=== PATIENT | male | born 1955 | race Hispanic/Latino ===

== ENCOUNTER → 2018-11-20 | Outpatient (CLI) | payer OTHER ==
--- NOTE | 2018-11-20 13:43 | Diagnostic Imaging Report ---
EXAM: Right upper quadrant abdominal ultrasound INDICATION: Elevated LFTs. COMPARISON: None. TECHNIQUE: Transverse and longitudinal images of the right upper quadrant abdomen were obtained FINDINGS: Liver: Size: 15.3 cm in the right midclavicular line, normal Appearance: Increased echogenicity, smooth contour Mass: No focal masses Gallbladder: No evidence of distention, pericholecystic fluid, wall thickening, stone, or reported sonographic Ledbetter's sign. Mild gallbladder sludge is noted. Gallbladder wall measures 0.2 cm. Bile Ducts: Intrahepatic Ducts: No dilatation Extrahepatic Ducts: Common bile duct measures 0.4 cm, no dilatation Pancreas: Partially visualized pancreas is unremarkable. Kidney: The right kidney measures 12.1 cm without evidence of hydronephrosis or stone. Vessels: Aorta: Visualized portions are normal Inferior Vena Cava: Visualized portions are normal Main Portal Vein: Measures 1.2 cm, normal size with hepatopetal flow. Free Fluid: No evidence of ascites. IMPRESSION: Mild gallbladder sludge without sonographic evidence of cholecystitis or cholelithiasis. Hepatic steatosis. Signed by: Dr. Sasha Mckeon MD on 11/20/2018 1:39 PM
== END ==
LOC: US 11:37
PROVIDERS: ATTEND Internal Medicine Gastroenterology
DX: R74.8 Abnormal levels of other serum enzymes (principal)
CPT/HCPCS: 76705

== ENCOUNTER → 2018-12-22 | Day surgery (SDC) | payer OTHER ==
[~2018-12-22] MED LIST: FENTANYL CITRATE/PF 100MCG/2 ML INJ ONE; GLIMEPIRIDE2 MG PO; LOSARTAN POTASS25 MG; LOVASTATIN40 MG; MIDAZOLAM HCL 2 MG/2 ML VIAL ONE; MULTIVITAMINS1 EAC7; OMEPRAZOLE40 MG; PROPOFOL IV EMULSION 10 MG/ML 50 ML VIAL ONE; ZOLPIDEM TARTRA10 MG PO
--- OUTSIDE RECORDS SUMMARY | 2018-12-22 15:07 | XMS REPORT ---
Author [facility] Address Unknown Phone Unavailable Care Team Providers Care Yardmaster Name Role Phone CONRADO DAVIS Unavailable Unavailable Problems This patient has no known problems. Allergies, Adverse Reactions, Alerts This patient has no known allergies or adverse reactions. Medications This patient has no known medications. Results Test Description Test Time Test Comments Text Results Atomic Results Result Comments LIVER 2018-11-20 13:35:00 [place] [address] Patient Name: JUDI SINGH MR #: [id number] : 1955 Age/Sex: 63/M Req #: [id number] Adm Physician: Ordered by: CONRADO DAVIS MD Report #: [id number] Location: Room/Bed: Procedure: [id number] US/US LIVER Exam Date: 11/20/18 Exam Time: 1216 REPORT STATUS: Signed EXAM: Right upper quadrant abdominal ultrasound INDICATION: El evated LFTs. COMPARISON: None. TECHNIQUE: Transverse and longitudinal images of the right upper quadrant abdomen were obtained FINDINGS: Liver: Size: 15.3 cm in the right midclavicular line, normal Appearance: Increased echogenicity, smooth contour Mass: No focal masses Gallbladder: No evidence of distention, pericholecystic fluid, wall thickening, stone, or reported sonographic Ledbetter's sign. Mild gallbladder sludge is noted. Gallbladder wall measures 0.2 cm. Bile Ducts: Intrahepatic Ducts: No dilatation Extrahepatic Ducts: Common bile duct measures 0.4 cm, no dilatation Pancreas: Partially visualized pancreas is unremarkable. Kidney: The right kidney measures 12.1 cm without evidence of hydronephrosis or stone. Vessels: Aorta: Visualized portions are normal Inferior Vena Cava: Visualized portions are normal Main Portal Vein: Measures 1.2 cm, normal size with hepatopetal flow. Free Fluid: No evidence of ascites. IMPRESSION: Mild gallbladder sludge without sonographic evidence of cholecystitis or cholelithiasis. Hepatic steatosis. Signed by: Dr. Audelia Quigley MD on 11/20/2018 1:39 PM Dictated By: AUDELIA QUIGLEY MD [id number] Transcribed By: GIANA on 11/20/18 1336 COPY TO: CONRADO DAVIS MD
--- OUTSIDE RECORDS SUMMARY | 2018-12-22 15:07 | XMS REPORT | Clinical Summary ---
Author Author [facility] Address Unknown Phone Unavailable Care Team Providers Care Echocardiography Technologist Name Role Phone Belen Lowery MD PCP Allergies Not on File Medications Not on file Active Problems Not on file Encounters Care Team Description Date Type Specialty Belen Lowery MD Right shoulder pain 04/06/2018 Hospital Radiology Encounter after 12/21/2017 Social History Date Tobacco Use Types Packs/Day Years Used Never Assessed Sex Assigned at Date Recorded Not on file Industry Job Start Date Occupation Not on file Not on file Not on file Travel End Travel History Travel Start No recent travel history available. Last Filed Vital Signs Not on file Plan of Treatment Health Maintenance Due Date Last Done Comments COLON CANCER SCREENING 2004 SHINGLES VACCINES (#1) 2004 INFLUENZA VACCINE 04/15/2019 Procedures Comments Procedure Name Priority Date/Time Associated Diagnosis XR SHOULDER 2+ VW RIGHT Routine 04/06/2018 Right shoulder pain 11:12 AM CDT after 12/21/2017 Results * XR Shoulder 2+ Vw Right (04/06/2018 11:12 AM CDT) Narrative Performed At Clinical history: [facility] COMPARISON: None. TECHNIQUE: views of the shoulder FINDINGS: The glenoid humeral joint distance is normal. There are no erosions and no soft tissue calcifications. The acromioclavicular joint is unremarkable. There are no signs of trauma. IMPRESSION: Mild degenerative changes surrounding the greater tubercle of the proximal humerus with no signs of acute trauma [id number] Procedure Note Interface, Radiology Results Incoming - 04/06/2018 12:01 PM CDT Clinical history: COMPARISON: None. TECHNIQUE: views of the shoulder FINDINGS: The glenoid humeral joint distance is normal. There are no erosions and no soft tissue calcifications. The acromioclavicular joint is unremarkable. There are no signs of trauma. IMPRESSION: Mild degenerative changes surrounding the greater tubercle of the proximal humerus with no signs of acute trauma [facility] [id number] Performing Organization Address City/State/Zipcode Phone Number ALBINO TONG [address] [place] [address] after 12/21/2017 Insurance Payer Benefit Subscriber ID Type Phone Address Plan / Group BCBS BCBS xxxxxxxxxxxx PPO CHOICE PPO/ROSEMARIE BENITEZ PPO Advance Directives Patient has advance care planning documents on file. For more information, joe comer contact: Charly Viera [address] [place] [address]
--- OUTSIDE RECORDS SUMMARY | 2018-12-22 15:07 | XMS REPORT ---
Author Author Admin, [facility] Address Unknown Phone Unavailable Allergies, Adverse Reactions, Alerts Allergy Name Reaction Description Start Date Severity Status Provider No Known Allergies Christal Taylor [employer]IPMENT [employer]OVER Conditions or Problems Problem Name Problem Code Onset Date Status Entry Date Provider Comment Standard Description Annotate Strain of muscle, fascia and tendon of lower back, initial encounter 848.8 Active Jamie Esquivel MD Other specified sites of sprains and strains Shoulder pain, right 719.41 Active Orlando Zurita MD (res) Pain in joint involving shoulder region Diabetes mellitus type II 250.00 Active Ginny Hill D.O. Diabetes mellitus without mention of complication, type II or unspecified type, not stated as uncontrolled Acute tear medial meniscus 836.0 Active Ginny Porter.O. Tear of medial cartilage or meniscus of knee, current suspect tear of meniscus Knee joint pain, left 719.46 Active Ginny Hill D.O. Pain in joint involving lower leg Somatic dysfunction, lower extremity 739.6 Active Ginny Porter.O. Nonallopathic lesions of lower extremities, not elsewhere classified Abnormal transaminases 790.4 Active Veronica Nelson MD (res) Nonspecific elevation of levels of transaminase or lactic acid dehydrogenase [LDH] from prior PCP Buster Gonzalez 03/28/17, AST 97, ALT 71 Colonoscopy V76.51 Active Veronica Nelson MD (res) Screening for malignant neoplasms of colon done February 19, 2010 per prior PCP Buster Gonzalez Diverticulosis 562.10 Active Veronica Nelson MD (res) Diverticulosis of colon (without mention of hemorrhage) Per records from prior PCP Buster Gonzalez 03/28/17 Fatty liver 571.8 Active Veronica Nelson MD (res) Other chronic nonalcoholic liver disease Abd u/s 04/02/17 Hemorrhoids, internal 455.0 Active Veronica Nelson MD (res) Internal hemorrhoids without mention of complication from prior PCP Buster Gonzalez 03/28/17 BMI 36.0-36.9 Active Veronica Nelson MD (res) Body Mass Index 36.0-36.9, adult Obesity Active Veronica Nelson MD (res) Obesity, unspecified Annual exam V70.0 Active Delia Gipson FOREST PATHOLOGIST Routine general medical examination at a health care facility Penile pain ICD-607.89 Inactive Orlando Zurita MD (res) ALLERGIC RHINITIS ICD-477.9 Inactive Orlando Zurita MD (res) Joint pain ICD-719.40 Inactive Orlando Zurita MD (res) Polyuria ICD-788.42 Inactive Orlando Zurita MD (res) Screening for HIV ICD-V73.89 Inactive Orlando Zurita MD (res) Impaired fasting glucose ICD-790.21 Inactive Orlando Zurita MD (res) URI - viral ICD-465.9 Inactive Orlando Zurita MD (res) Penile pain 607.89 Resolved Orlando Zurita MD (res) Other specified disorders of penis ALLERGIC RHINITIS 477.9 Resolved Jamie Esquivel MD Allergic rhinitis, cause unspecified Joint pain 719.40 Resolved Orlando Zurita MD (res) Pain in joint, site unspecified Polyuria 788.42 Resolved Orlando Zurita MD (res) Polyuria Screening for HIV V73.89 Resolved Orlando Zurita MD (res) Screening examination for other specified viral diseases Impaired fasting glucose 790.21 Resolved Jamie Esquivel MD Impaired fasting glucose from prior PCP Buster Gonzalez 03/28/17 URI - viral 465.9 Resolved Orlando Zurita MD (res) Acute upper respiratory infections of unspecified site Medication List Medication Instructions Start Date Stop Date Generic Name NDC Status Provider Patient Instruction ASPIRIN 81 MG ORAL TABLET DELAYED RELEASE 1 by mouth every day ASPIRIN 09400635055 Active Theodora Gabriel FIRST ASSIST Active CYCLOBENZAPRINE HCL 10 MG ORAL TABLET 1 tablet at night time for muscle spasm CYCLOBENZAPRINE HCL 63870708550 Active Orlando Zurita MD (res) Active FARXIGA 5 MG ORAL TABLET take 1 tablet daily DAPAGLIFLOZIN PROPANEDIOL 27748791603 Active Orlando Zurita MD (res) Active METFORMIN HCL 1000 MG ORAL TABLET 1 by mouth twice a day METFORMIN HCL 65469681504 Active Orlando Zurita MD (res) Active MOBIC 15 MG ORAL TABLET 1 by mouth daily, take with food; do not take other over counter drugs such as ibuprofen or advil when on this medicine MELOXICAM 50024901351 Active Orlando Zurita MD (res) Active KETOCONAZOLE 2 % EXTERNAL CREAM apply to area twice a day KETOCONAZOLE 2 % EXTERNAL CREAM 874504 KETOCONAZOLE Inactive FLONASE ALLERGY RELIEF 50 MCG/ACT NASAL SUSPENSION 2 sprays each nostril every day FLONASE ALLERGY RELIEF 50 MCG/ACT NASAL SUSPENSION 6252384 FLUTICASONE PROPIONATE Inactive TESSALON PERLES 100 MG ORAL CAPSULE 1 by mouth 3 times a day as needed for cough TESSALON PERLES 100 MG ORAL CAPSULE 682961 BENZONATATE Inactive BACLOFEN 10 MG ORAL TABLET one tablet by mouth three times a day as needed for muscle spasm BACLOFEN 96818878500 No Longer Active Orlando Zurita MD (res) Active KETOCONAZOLE 2 % EXTERNAL CREAM apply to area twice a day KETOCONAZOLE 33254122491 No Longer Active Orlando Zurita MD (res) Active FLONASE ALLERGY RELIEF 50 MCG/ACT NASAL SUSPENSION 2 sprays each nostril every day FLUTICASONE PROPIONATE 20126717194 No Longer Active Orlando Zurita MD (res) Active TESSALON PERLES 100 MG ORAL CAPSULE 1 by mouth 3 times a day as needed for cough BENZONATATE 57694408532 No Longer Active Ginny Hill D.O. Active Vital Signs Date Name Value Unit Range Description blood pressure, diastolic 78 mm[Hg] BP reynoso blood pressure, systolic 135 mm[Hg] BP sys height E&M 66 [in_us] Bdy height pulse rate E&M 67 /min Heart rate respiratory rate E&M 17 /min Resp rate temperature E&M 98.2 [degF] Body temperature weight E&M 227 [lb_av] Weight Measured blood pressure, diastolic 85 mm[Hg] BP reynoso blood pressure, systolic 132 mm[Hg] BP sys height E&M 66 [in_us] Bdy height pulse rate E&M 70 /min Heart rate respiratory rate E&M 18 /min Resp rate temperature E&M 98.1 [degF] Body temperature weight E&M 221.60 [lb_av] Weight Measured blood pressure, diastolic 86 mm[Hg] BP reynoso blood pressure, systolic 138 mm[Hg] BP sys height E&M 66 [in_us] Bdy height pulse rate E&M 70 /min Heart rate respiratory rate E&M 18 /min Resp rate temperature E&M 97.8 [degF] Body temperature weight E&M 226 [lb_av] Weight Measured blood pressure, diastolic 84 mm[Hg] BP reynoso blood pressure, systolic 127 mm[Hg] BP sys height E&M 66 [in_us] Bdy height pulse rate E&M 71 /min Heart rate respiratory rate E&M 18 /min Resp rate temperature E&M 98.5 [degF] Body temperature weight E&M 224 [lb_av] Weight Measured blood pressure, diastolic 84 mm[Hg] BP reynoso blood pressure, systolic 134 mm[Hg] BP sys height E&M 66 [in_us] Bdy height pulse rate E&M 65 /min Heart rate respiratory rate E&M 20 /min Resp rate temperature E&M 98.4 [degF] Body temperature weight E&M 224.40 [lb_av] Weight Measured blood pressure, diastolic 83 mm[Hg] BP reynoso blood pressure, systolic 144 mm[Hg] BP sys height E&M 67 [in_us] Bdy height pulse rate E&M 89 /min Heart rate respiratory rate E&M 18 /min Resp rate temperature E&M 98.1 [degF] Body temperature weight E&M 223 [lb_av] Weight Measured blood pressure, diastolic, second observation 88 mm[Hg] BP reynoso blood pressure, diastolic 88 mm[Hg] BP reynoso blood pressure, systolic, second observation 137 mm[Hg] BP sys blood pressure, systolic 137 mm[Hg] BP sys height E&M 67 [in_us] Bdy height pulse rate E&M 79 /min Heart rate respiratory rate E&M 16 /min Resp rate temperature E&M 97.8 [degF] Body temperature weight E&M 225.40 [lb_av] Weight Measured blood pressure, diastolic 85 mm[Hg] BP reynoso blood pressure, systolic 133 mm[Hg] BP sys height E&M 67 [in_us] Bdy height pulse rate E&M 85 /min Heart rate respiratory rate E&M 17 /min Resp rate temperature E&M 98.0 [degF] Body temperature weight E&M 232 [lb_av] Weight Measured blood pressure, diastolic 91 mm[Hg] BP reynoso blood pressure, systolic 151 mm[Hg] BP sys height E&M 67 [in_us] Bdy height pulse rate E&M 90 /min Heart rate respiratory rate E&M 23 /min Resp rate temperature E&M 97.9 [degF] Body temperature weight E&M 236 [lb_av] Weight Measured Diagnostic Results Date Name Value Unit Range Description Lab Report: CBC With Differential/Platelet, Comp. Metabolic Panel (14), ... - Serology hepatitis B virus core antibody, IgM, PT, serum, quantitative Negative Negative hepatitis C antibody, serum <0.1 0.0-0.9 Lab Report: Urinalysis, Complete, Microscopic Examination, Chlamydia/GC ... - Urinalysis epithelial cells, urine None seen /[LPF] 0 - 10 pH, urine, semiquantitative 5.5 5.0-7.5 Lab Report: CBC With Differential/Platelet, Comp. Metabolic Panel (14), ... - Hematology lymphocyte count, blood, automated 1.2 X10E3/UL 10*3/mm3 0.7-3.1 Lab Report: Urinalysis, Complete, Microscopic Examination, Chlamydia/GC ... - Urinalysis bilirubin, urine Negative Negative Lab Report: CBC With Differential/Platelet, Comp. Metabolic Panel (14), ... - Chemistry urea nitrogen, blood 16 mg/dL 8-27 creatinine, serum 1.15 mg/dL 0.76-1.27 chloride, serum 94 mmol/L 96-106 Lab Report: CBC With Differential/Platelet, Comp. Metabolic Panel (14), ... - Hematology mean corpuscular volume, RBC 91 fL 79-97 Lab Report: CBC With Differential/Platelet, Comp. Metabolic Panel (14), ... - Chemistry triglyceride, serum, fasting 311 mg/dL 0-149 Lab Report: CBC With Differential/Platelet, Comp. Metabolic Panel (14), ... - Hematology erythrocyte (RBC) count 5.20 X10E6/UL 10*6/mm3 4.14-5.80 Lab Report: CBC With Differential/Platelet, Comp. Metabolic Panel (14), ... - Chemistry Estimated Glomerular Filtration Rate (calc) 67 mL/min/1.73m2 >59 Lab Report: Urinalysis, Complete, Microscopic Examination, Chlamydia/GC ... - Urinalysis appearance, urine Clear Clear Lab Report: CBC With Differential/Platelet, Comp. Metabolic Panel (14), ... - Hematology platelet count 155 X10E3/UL 10*3/mm3 348-539 6294/04/13 red blood cell distribution width 13.1 % 12.3-15.4 Lab Report: CBC With Differential/Platelet, Comp. Metabolic Panel (14), ... - Chemistry protein, total, serum 7.4 g/dL 6.0-8.5 HDL cholesterol, serum 30 mg/dL >39 Lab Report: Urinalysis, Complete, Microscopic Examination, Chlamydia/GC ... - Chemistry specific gravity, body fluid >=1.030 1.005-1.030 Lab Report: Urinalysis, Complete, Microscopic Examination, Chlamydia/GC ... - Urinalysis glucose, urine, semiquantitative 3+ Negative Lab Report: CBC With Differential/Platelet, Comp. Metabolic Panel (14), ... - Chemistry albumin/globulin ratio, serum 1.2 1.2-2.2 Lab Report: CBC With Differential/Platelet, Comp. Metabolic Panel (14), ... - Hematology eosinophils as percent of blood leukocytes 2 % Not Estab. Lab Report: CBC With Differential/Platelet, Comp. Metabolic Panel (14), ... - Chemistry Absolute Neutrophils 3.8 X10E3/UL 10*3/uL 1.4-7.0 Lab Report: CBC With Differential/Platelet, Comp. Metabolic Panel (14), ... - Hematology basophil count, absolute 0.0 x10E3/uL 0.0-0.2 Lab Report: CBC With Differential/Platelet, Comp. Metabolic Panel (14), ... - Chemistry hepatitis B surface antigen Negative Negative alanine aminotransferase (SGPT), serum 105 U/L 0-44 LDL cholesterol, serum 58 mg/dL 0-99 Lab Report: CBC With Differential/Platelet, Comp. Metabolic Panel (14), ... - Hematology monocytes as percent of blood leukocytes 8 % Not Estab. Lab Report: Urinalysis, Complete, Microscopic Examination, Chlamydia/GC ... - Urinalysis urine culture No growth Lab Report: CBC With Differential/Platelet, Comp. Metabolic Panel (14), ... - Chemistry cholesterol, serum 150 mg/dL 100-199 Lab Report: Urinalysis, Complete, Microscopic Examination, Chlamydia/GC ... - Basic Occult Blood, urine Negative Negative Lab Report: CBC With Differential/Platelet, Comp. Metabolic Panel (14), ... - Hematology mean corpuscular hemoglobin concentration, RBC 33.8 G/DL % 31.5-35.7 Lab Report: Urinalysis, Complete, Microscopic Examination, Chlamydia/GC ... - Urinalysis leukocyte esterase, urine, by dipstick Negative Negative Lab Report: CBC With Differential/Platelet, Comp. Metabolic Panel (14), ... - Hematology hemoglobin, blood 16.0 g/dL 13.0-17.7 Lab Report: Urinalysis, Complete, Microscopic Examination, Chlamydia/GC ... - Urinalysis urinalysis, microscopic examination MICRON Lab Report: CBC With Differential/Platelet, Comp. Metabolic Panel (14), ... - Hematology leukocyte count, blood 5.5 X10E3/UL 10*3/mm3 3.4-10.8 Lab Report: Urinalysis, Complete, Microscopic Examination, Chlamydia/GC ... - Urinalysis protein, urine, semiquantitative (dipstick) Negative Negative/Trace Lab Report: CBC With Differential/Platelet, Comp. Metabolic Panel (14), ... - Hematology hematocrit, blood 47.3 % 37.5-51.0 Lab Report: CBC With Differential/Platelet, Comp. Metabolic Panel (14), ... - Chemistry prostate specific antigen 1.6 ng/mL 0.0-4.0 Lab Report: CBC With Differential/Platelet, Comp. Metabolic Panel (14), ... - Serology hepatitis A antibody, IgM Negative Negative Lab Report: CBC With Differential/Platelet, Comp. Metabolic Panel (14), ... - Chemistry globulin, serum 3.4 1.5-4.5 Lab Report: Urinalysis, Complete, Microscopic Examination, Chlamydia/GC ... - Urinalysis bacteria, urine microscopy None seen None seen/Few Lab Report: CBC With Differential/Platelet, Comp. Metabolic Panel (14), ... - Chemistry albumin, serum 4.0 g/dL 3.6-4.8 very low density lipoproteins 62 mg/dL 5-40 Lab Report: Urinalysis, Complete, Microscopic Examination, Chlamydia/GC ... - Urinalysis urobilinogen, urine, semiquantitative (dipstick) 0.2 0.2-1.0 Lab Report: CBC With Differential/Platelet, Comp. Metabolic Panel (14), ... - Chemistry calcium, serum 9.4 mg/dL 8.6-10.2 Lab Report: CBC With Differential/Platelet, Comp. Metabolic Panel (14), ... - Hematology basophils as percent of blood leukocytes 1 % Not Estab. Lab Report: Albumin, Random Urine - Urinalysis microalbumin/total urine volume 20.4 mg/L Not Estab. Lab Report: CBC With Differential/Platelet, Comp. Metabolic Panel (14), ... - Hematology monocyte count, blood, automated 0.5 X10E3/UL 10*3/uL 0.1-0.9 Lab Report: CBC With Differential/Platelet, Comp. Metabolic Panel (14), ... - Chemistry immature granulocytes, percentage of total cells, blood 0 % Not Estab. urea nitrogen/creatinine ratio, serum 14 10-24 Lab Report: CBC With Differential/Platelet, Comp. Metabolic Panel (14), ... - Genetics/fertility eGFR if 78 mL/min/1.73m2 >59 Lab Report: Urinalysis, Complete, Microscopic Examination, Chlamydia/GC ... - Urinalysis WBC urine on microscopy 0-5 /hpf {Cells}/[HPF] 0 - 5 Lab Report: CBC With Differential/Platelet, Comp. Metabolic Panel (14), ... - Hematology lymphocytes as percent of blood leukocytes 21 % Not Estab. Lab Report: Urinalysis, Complete, Microscopic Examination, Chlamydia/GC ... - Chemistry RBC, Urine 0-2 /hpf /[HPF] 0 - 2 Lab Report: CBC With Differential/Platelet, Comp. Metabolic Panel (14), ... - Chemistry carbon dioxide, venous blood 25 mmol/L 18-29 Lab Report: Urinalysis, Complete, Microscopic Examination, Chlamydia/GC ... - Lab chlamydia DNA probe Negative Negative Lab Report: Urinalysis, Complete, Microscopic Examination, Chlamydia/GC ... - Microbiology Neisseria gonorrhoeae DNA probe Negative Negative Lab Report: CBC With Differential/Platelet, Comp. Metabolic Panel (14), ... - Chemistry sodium, serum 135 mmol/L 134-144 Office Visit: Adult Followup [facility] - Chemistry hemoglobin A1C, blood, as % of total hemoglobin 6.6 % blood glucose, fasting 112 mg/dL Lab Report: CBC With Differential/Platelet, Comp. Metabolic Panel (14), ... - Chemistry alkaline phosphatase, serum 140 U/L 39-117 Lab Report: Urinalysis, Complete, Microscopic Examination, Chlamydia/GC ... - Urinalysis ketones, urine, by test strip Negative Negative Lab Report: CBC With Differential/Platelet, Comp. Metabolic Panel (14), ... - Hematology Eosinophil Absolute Count 0.1 X10E3/UL 10*3/uL 0.0-0.4 mean corpuscular hemoglobin, RBC 30.8 pg 26.6-33.0 Lab Report: CBC With Differential/Platelet, Comp. Metabolic Panel (14), ... - Chemistry bilirubin, serum, total 0.6 mg/dL 0.0-1.2 Lab Report: Albumin/Creatinine Ratio,Urine - Chemistry creatinine, random, urine 119.2 mg/dL Not Estab. Lab Report: CBC With Differential/Platelet, Comp. Metabolic Panel (14), ... - Hematology neutrophils as percent of blood leukocytes 68 % Not Estab. Lab Report: Urinalysis, Complete, Microscopic Examination, Chlamydia/GC ... - Microbiology microscopic exam See below: Lab Report: Urinalysis, Complete, Microscopic Examination, Chlamydia/GC ... - Chemistry nitrate, urine Negative Negative Lab Report: CBC With Differential/Platelet, Comp. Metabolic Panel (14), ... - Chemistry blood glucose, random 390 mg/dL 65-99 potassium, serum 4.3 mmol/L 3.5-5.2 aspartate aminotransferase (SGOT), serum 103 U/L 0-40 Lab Report: Urinalysis, Complete, Microscopic Examination, Chlamydia/GC ... - Urinalysis urine color Yellow Yellow Encounters Date Encounter Provider Code Facility 17:56:31 CDT Est Patient Exp Problem - 18740 Ginny Hill D.O. CPT-30390 [facility] 09:42:51 CDT Est Patient Exp Problem - 38208 Orlando Zurita MD (res) CPT-92102 [facility] 11:25:36 CDT Est Patient Exp Problem - 27690 Orlando Zurita MD (res) CPT-60286 [facility] 14:32:34 CDT Est Patient Exp Problem - 83064 Orlando Zurita MD (res) CPT-37907 [facility] 17:46:26 CDT Est Patient Exp Problem - 72141 Dae Chance MD (res) CPT-59890 [facility] 16:01:16 CDT Est Patient Exp Problem - 80011 Veronica Nelson MD (res) CPT-23414 [facility] 10:45:04 CDT Est Patient Detailed - 24738 Ginny Hill D.O. CPT-23754 [facility] 17:14:11 BUSINESS RULES DEVELOPER Est Patient Exp Problem - 65484 Veronica Nelson MD (res) CPT-17884 [facility] Procedures Code Procedure Name Date Entry Date Standard Description CPT-92681 Glucose Stick 17:46:26 CDT CPT-31883 New Patient Well Exam (40 - 64 Yrs) - 82117 13:27:28 BUSINESS RULES DEVELOPER
[2018-12-22 20:20] VITALS: BP 125/85
== END | disposition home or self-care (01) ==
LOC: OR 15:04
PROVIDERS: ATTEND Internal Medicine Gastroenterology
DX: Z12.11 Encounter for screening for malignant neoplasm of colon (principal); D12.3 Benign neoplasm of transverse colon; E78.5 Hyperlipidemia, unspecified; I10 Essential (primary) hypertension; E11.9 Type 2 diabetes mellitus without complications; R74.8 Abnormal levels of other serum enzymes; K76.0 Fatty (change of) liver, not elsewhere classified; K64.8 Other hemorrhoids; Z79.84 Long term (current) use of oral hypoglycemic drugs; Z68.36 Body mass index [BMI] 36.0-36.9, adult
CPT/HCPCS: 36415; 45384; 82948; 93005; J2250; J2704